=== PATIENT | female | born 1975 | race Caucasian/White ===

== ENCOUNTER 2016-12-19 19:00 | Emergency (ER) | payer OTHER ==
[~2016-12-19] VITALS: Ht 154.9 cm; Wt 64.0 kg
[2016-12-19 19:18] VITALS: Ht 154.9 cm; Wt 64.0 kg
--- NOTE | 2016-12-19 21:24 | ERD ---
ER Documentation Chief Complaint Date/Time DATE: 12/19/16 TIME: 21:18 Chief Complaint headache x 1 week gotten worst for the past 3 days HPI 41-year-old female who presented emergency department for generalized headache for about a week. Stated that it got worse for the past 3 days and it is unbearable today. Patient and family member is insisting CT of the brain to rule out stroke. LMP: Stated that it was 3 years ago. A2. Denies head injury, blurred vision, light sensitivity,changes in vision, neck pain, neck stiffness, difficulty swallowing, shoulder pain, chest pain, back pain, abdominal pain, nausea, vomiting, constipation, diarrhea, urinary symptoms , loss of bowel bladder control, , possibility of being , numbness or tingling sensation, difficulty walking, fever, chills. No known drug allergies. No past medical history. No surgical history. Does not take any prescription medications at home. Social: Works as a finance teacher. Denies smoking, use of alcoholic beverages, use of illegal drugs. ROS All systems reviewed and are negative except as per history of present illness. Medications Home Meds Active Scripts Naproxen* (Naprosyn*) 500 Mg Tablet, 500 MG PO BID Y for PAIN AND/OR INFLAMMATION, #30 TAB Prov:PASILABAN,KLAR F 12/19/16 Acetaminophen* (Tylophen*) 500 Mg Capsule, 1 CAP PO Q6H Y for PAIN AND OR ELEVATED TEMP, #20 CAP Prov:PASILABAN,KLAR F 12/19/16 Tramadol HCl (Tramadol HCl) 50 Mg Tablet, 50 MG PO Q4 Y for PAIN, #15 TAB Prov:PASILABAN,KLAR F 12/19/16 Allergies Allergies: Coded Allergies: No Known Allergy (Unverified , 12/19/16) PMhx/Soc Medical and Surgical Hx: pt denies Medical Hx, pt denies Surgical Hx History of Surgery: No Anesthesia Reaction: No Hx Neurological Disorder: No Hx Respiratory Disorders: No Hx Cardiac Disorders: No Hx Psychiatric Problems: No Hx Miscellaneous Medical Probl: No Hx Alcohol Use: No Hx Substance Use: No Hx Tobacco Use: No Smoking Status: Never smoker Physical Exam Vitals Vital Signs Date Time Temp Pulse Resp B/P Pulse Ox O2 Delivery O2 Flow Rate FiO2 12/19/16 19:18 98.1 65 20 133/67 100 Physical Exam Const: [] Head: Atraumatic Eyes: Normal Conjunctiva. No pain in eye movement. Movement of her eyes within normal limits. No visual field loss. ENT: Normal External Ears, Nose and Mouth. Neck: Full range of motion..~ No meningismus. Resp: Clear to auscultation bilaterally Cardio: Regular rate and rhythm, no murmurs Abd: Soft, non tender, non distended. Normal bowel sounds Skin: No petechiae or rashes Back: No midline or flank tenderness Ext: No cyanosis, or edema Neur: Awake and alert. Cranial nerves II through XII are intact. Romberg test is negative. Psych: Normal Mood and Affect Results 24 hrs Current Medications Medications (Trade) Dose Ordered Sig/Aleta Route PRN Reason Start Time Stop Time Status Last Admin Dose Admin Acetaminophen/ Hydrocodone Bitart ([place] (10/325)) 1 tab ONCE ONCE PO 12/19/16 22:30 12/19/16 22:30 DC Morphine Sulfate (morphine) 4 mg ONCE STAT IM 12/19/16 22:27 12/19/16 22:28 DC 12/19/16 22:32 Procedures/MDM 41-year-old female who presented emergency department for generalized headache for about a week. Stated that it got worse for the past 3 days and it is unbearable today. Patient and family member is insisting CT of the brain to rule out stroke. LMP: Stated that it was 3 years ago. A2. Denies head injury, blurred vision, light sensitivity,changes in vision, neck pain, neck stiffness, difficulty swallowing, shoulder pain, chest pain, back pain, abdominal pain, nausea, vomiting, constipation, diarrhea, urinary symptoms , loss of bowel bladder control, , possibility of being , numbness or tingling sensation, difficulty walking, fever, chills. No known drug allergies. No past medical history. No surgical history. Does not take any prescription medications at home. Social: Works as a finance teacher. Denies smoking, use of alcoholic beverages, use of illegal drugs. Physical exam: Unremarkable. Disease process was explained to the patient and family member. They both verbalized understanding and agreed with the diagnostic test, plan of care. CT of the brain: IMPRESSION: No acute findings. EKG: Sinus bradycardia with a ventricular rate of 53 bpm. No evidence of acute myocardial infarction. No evidence of ischemia. Treatment: [place]. Reevaluation: Denies headache. No neurological deficits. Differential diagnosis: Subarachnoid hemorrhage versus stroke versus cluster headache versus tension headache versus migraine versus headache versus sinus headache Final diagnosis: Headache. Prescription: Tramadol. Tylenol. Motrin. Follow-up with primary care physician the next 24-48 hours. Come back to emergency department for any new symptoms or any worsening of symptoms. All questions and concerns are answered. Patient and family member verbalized understanding and agreed with the plan of care. Hemodynamically stable on discharge. Departure Diagnosis: Primary Impression: Headache Condition: Stable Additional Instructions: Follow-up with primary care physician the next 24-48 hours. Come back to emergency department for any new symptoms or any worsening of symptoms. All questions and concerns are answered. Patient and family member verbalized understanding and agreed with the plan of care. ALLY MCCONNELL Dec 19, 2016 21:24
--- NOTE | 2016-12-19 22:14 | RADRPT ---
PROCEDURE: Noncontrast CT Head. CLINICAL INDICATION: Pain. TECHNIQUE: Noncontrast CT of the head was obtained. The administered radiation dose was CTDI vol = 40.2 mGy, DLP = 768 mGy-cm. One or more of the following dose reduction techniques were used: automa frank exposure control, adjustment of the mA and/or kV according to patient size and/or use of iterati ve reconstruction technique. COMPARISON: No pertinent prior examinations were submitted for comparison. FINDINGS: The ventricles and sulci are within normal limits. There is no acute intracranial hemorrhage or ext ra-axial fluid collection. There is no mass effect. No midline shift is identified. There is no loss of sol-white differentiation to suggest acute infarction. The orbits are within normal limits. The paranasal sinuses and mastoid air cells are without fluid. No destructive osseous lesion is identified. IMPRESSION: No acute findings. RPTAT: HIKT .Leighton Ricci MD, MD Date Time Electronically viewed and signed by .Leighton Ricci MD, on 12/19/2016 22:13 .T/
[2016-12-19] MEDS ORDERED: ACET500C5 PO (22:22)
[2016-12-19] MEDS ORDERED: TRAM50TA2 PO (22:22)
[2016-12-19] MEDS ORDERED: NAPR-260 PO (22:22)
[2016-12-19] MEDS ORDERED: morphine 4 MG/ML VIAL IM STA (22:27)
[2016-12-19] MEDS ORDERED: HYDROCODONE/APAP (10/325) TAB PO ONE (22:30)
== END 2016-12-19 22:37 | disposition home or self-care (01) ==
LOC: FTE 19:00
DX: R51 Headache (principal); R07.9 Chest pain, unspecified
CPT/HCPCS: 70450; 96372; J2270; Z7502

== ENCOUNTER 2018-03-13 17:06 | Emergency (ER) | payer OTHER ==
[~2018-03-13] VITALS: Ht 165.1 cm; Wt 68.0 kg
[~2018-03-13 17:06] MED LIST: ACET500C5 PO; NAPR-985 PO; TRAM50TA2 PO
[2018-03-13 17:20] VITALS: BP 135/68; PULSE 75; RESP 16; Ht 165.1 cm; Wt 68.0 kg
--- NOTE | 2018-03-13 19:06 | ERD ---
ER Documentation Chief Complaint Chief Complaint RIGHT PINKY TOE PAIN HPI 42-year-old female presents with pain to the fifth digit of her right foot. States that she hit her foot on a piece of furniture on March 05 and it is still painful. Patient able to ambulate. Patient denies numbness or tingling. Denies past medical history. Denies allergies. Denies medications. Denies surgeries. Denies alcohol, tobacco, drug use. Up to date on vaccines. ROS All systems reviewed and are negative except as per history of present illness. Medications Home Meds Active Scripts Hydrocodone/Acetaminophen ([place] 5-325 Tablet) 1 Each Tablet, 1 TAB PO Q6H PRN for PAIN, #20 TAB 0 Refills Prov:GRETA PRADO 03/13/18 Naproxen* (Naprosyn*) 500 Mg Tablet, 500 MG PO BID PRN for PAIN AND/OR INFLAMMATION, #30 TAB Prov:ALLY MCCONNELL 12/19/16 Acetaminophen* (Tylophen*) 500 Mg Capsule, 1 CAP PO Q6H PRN for PAIN AND OR ELEVATED TEMP, #20 CAP Prov:ALLY MCCONNELL F 12/19/16 Tramadol HCl (Tramadol HCl) 50 Mg Tablet, 50 MG PO Q4 PRN for PAIN, #15 TAB Prov:ALLY MCCONNELL F 12/19/16 Allergies Allergies: Coded Allergies: No Known Allergy (Unverified , 12/19/16) PMhx/Soc Medical and Surgical Hx: pt denies Medical Hx, pt denies Surgical Hx History of Surgery: No Anesthesia Reaction: No Hx Neurological Disorder: No Hx Respiratory Disorders: No Hx Cardiac Disorders: No Hx Psychiatric Problems: No Hx Miscellaneous Medical Probl: No Hx Alcohol Use: No Hx Substance Use: No Hx Tobacco Use: No Smoking Status: Never smoker FmHx Family History: No diabetes, No coronary disease, No other Physical Exam Vitals Vital Signs Date Temp Pulse Resp B/P (MAP) Pulse Ox O2 O2 Flow FiO2 Time Delivery Rate 03/13/18 98.6 75 16 135/68 98 17:20 (90) Physical Exam Const: No acute distress Resp: Clear to auscultation bilaterally Cardio: Regular rate and rhythm, no murmurs Right Foot: Tenderness to palpation over fifth metatarsal and fifth digit of right foot. No edema, ecchymosis, erythema, or bony deformity noted. Distal sensation intact. ROM intact. Neur: Awake and alert Psych: Normal Mood and Affect Results 24 hrs Laboratory Tests Test 03/13/18 19:19 POC Beta HCG, Qualitative NEGATIVE Procedures/MDM DIAGNOSTIC IMAGING REPORT Patient: BELL PASTOR : 1975 Age: 42 Sex: F MR #: [id number] DOS: 03/13/18 0000 Ordering MD: GRETA PRADO Location: [facility] Room/Bed: PROCEDURE: XR Foot. CLINICAL INDICATION: Right foot pain TECHNIQUE: 3 views of the right foot are available for review. COMPARISON: None available FINDINGS: Displaced extraarticular fracture near the head of the fifth proximal phalanx. Alignment is normal. Joint spaces are preserved. Soft tissues are grossly unremarkable. IMPRESSION: 1. Acute minimally-displaced fracture near the head of the fifth proximal phalanx. RPTAT: UU .Kevin Odell MD, MD Date Time Electronically viewed and signed by .Kevin Odell MD, MD on 03/13/2018 20:01 .K/ CC: GRETA PRADO [id number] ER Course: Right foot xray - positive for fracture of 5th toe. Dano tape and ortho shoe applied. Normal sensation and cap refill after application. MDM: 42-year-old female presents with pain to the fifth digit of her right foot. States that she hit her foot on a piece of furniture on March 05 and it is still painful. Patient able to ambulate. Patient denies numbness or tingling. Based on mechanism of injury and physical exam decision was made to x-ray the right foot. X-ray showed fracture of the proximal phalanx of fifth toe. Patient given ortho shoe and dano tape and discharged with Rx for [place]. Low suspicion for open fracture, compartment syndrome, neurovascular compromise. Patient discharged with strict ER precautions. Patient advised to follow up with PMD and ortho. All questions answered at discharge. Departure Diagnosis: Primary Impression: Injury of toe Encounter type: initial encounter Laterality: right Qualified Codes: S99.921A - Unspecified injury of right foot, initial encounter Additional Impression: Fracture of toe of right foot Encounter type: initial encounter Toe: lesser toe Fracture type: closed Phalanx: proximal Fracture alignment: nondisplaced Qualified Codes: S92.514A - Nondisplaced fracture of proximal phalanx of right lesser toe(s), initial encounter for closed fracture Condition: Stable GRETA PRADO Mar 13, 2018 19:06
[2018-03-13] MEDS ORDERED: HYDR-4011 PO (20:30)
== END 2018-03-13 20:59 | disposition home or self-care (01) ==
LOC: FTE 17:06
DX: S92.514A Nondisplaced fracture of proximal phalanx of right lesser toe(s), initial encounter for closed fracture (principal); W22.03XA Walked into furniture, initial encounter; Y92.9 Unspecified place or not applicable
CPT/HCPCS: 73630; 81025; Z7502

== ENCOUNTER 2018-04-19 08:48 | Emergency (ER) | payer OTHER ==
[~2018-04-19] VITALS: Ht 160 cm; Wt 65.6 kg
[~2018-04-19 08:48] MED LIST changes: +HYDR-4011 PO
[2018-04-19 08:51] VITALS: BP 120/60; PULSE 105; RESP 24; Ht 160 cm; Wt 65.6 kg
[2018-04-19] MEDS ORDERED: KETOROLAC 60 MG INJ IM STA (09:10)
[2018-04-19] MEDS ORDERED: ACETAMINOPHEN 500 MG TAB PO STA (09:48)
[2018-04-19] MEDS ORDERED: IBUP800T48 PO (11:10)
[2018-04-19] MEDS ORDERED: ACET500C5 PO (11:10)
--- NOTE | 2018-04-19 13:16 | ERD ---
ER Documentation Chief Complaint Chief Complaint c/o fever and body apin x 3 days HPI 43-year-old female presenting with diffuse body aches pain times 3 days. She had a fever. States her whole body aches and she has had a cough that is dry. Has a mild runny nose. Took DayQuil earlier today. No change in urination or bowel movement. Has a mild sore throat with no vomiting. Denies medical problems. NKDA. Surgical history denies. Social history denies ROS All systems reviewed and are negative except as per history of present illness. Medications Home Meds Active Scripts Acetaminophen* (Tylophen*) 500 Mg Capsule, 2 CAP PO Q8H PRN for PAIN AND OR ELEVATED TEMP, #20 CAP Prov:LOY SEGURA PA-C 04/19/18 Ibuprofen* (Motrin*) 800 Mg Tab, 800 MG PO Q6, #30 TAB Prov:LOY SEGURA PA-C 04/19/18 Hydrocodone/Acetaminophen ([place] 5-325 Tablet) 1 Each Tablet, 1 TAB PO Q6H PRN for PAIN, #20 TAB 0 Refills Prov:GRETA PRADO 03/13/18 Naproxen* (Naprosyn*) 500 Mg Tablet, 500 MG PO BID PRN for PAIN AND/OR INFLAMMATION, #30 TAB Prov:ALLY MCCONNELL F 12/19/16 Acetaminophen* (Tylophen*) 500 Mg Capsule, 1 CAP PO Q6H PRN for PAIN AND OR ELEVATED TEMP, #20 CAP Prov:JAJAILAROB LEONARDAR F 12/19/16 Tramadol HCl (Tramadol HCl) 50 Mg Tablet, 50 MG PO Q4 PRN for PAIN, #15 TAB Prov:PASILABANROBAR F 12/19/16 Allergies Allergies: Coded Allergies: No Known Allergy (Unverified , 12/19/16) PMhx/Soc History of Surgery: No Anesthesia Reaction: No Hx Neurological Disorder: No Hx Respiratory Disorders: No Hx Cardiac Disorders: No Hx Psychiatric Problems: No Hx Miscellaneous Medical Probl: No Hx Alcohol Use: No Hx Substance Use: No Hx Tobacco Use: No FmHx Family History: No diabetes, No coronary disease, No other Physical Exam Vitals Vital Signs Date Temp Pulse Resp B/P (MAP) Pulse Ox O2 O2 Flow FiO2 Time Delivery Rate 04/19/18 100.2 10:47 04/19/18 101.8 09:57 04/19/18 101.8 105 24 120/60 97 08:51 (80) Physical Exam GENERAL: The patient is well-appearing, well-nourished, in no acute distress HEENT: Atraumatic. Conjunctivae are pink. Pupils equal, round, and reactive to light. There is no scleral icterus. Tympanic membranes clear bilaterally. Oropharynx clear. NECK: C-spine is soft and supple. There is no meningismus. There is no cervical lymphadenopathy. CHEST: Clear to auscultation bilaterally. There are no rales, wheezes or rhonchi. HEART: Regular rate and rhythm. No murmurs, clicks, rubs or gallops. Results 24 hrs Laboratory Tests Test 04/19/18 09:32 04/19/18 09:33 Bedside Urine pH (LAB) 7.5 Bedside Urine Protein (LAB) Negative Bedside Urine Glucose (UA) Negative Bedside Urine Ketones (LAB) Negative Bedside Urine Blood Trace-intact Bedside Urine Nitrite (LAB) Negative Bedside Urine Leukocyte Esterase (L 1+ POC Beta HCG, Qualitative NEGATIVE Current Medications Medications Dose Sig/Aleta Start Time Status Last (Trade) Ordered Route PRN Stop Time Admin Dose Reason Admin Ketorolac 60 mg ONCE STAT 04/19/18 DC 04/19/18 Tromethamine IM 09:10 09:45 (Toradol) 04/19/18 09:12 500 mg ONCE STAT 04/19/18 DC 04/19/18 Acetaminophen PO 09:48 09:57 (Tylenol 04/19/18 09:49 Tab) Procedures/MDM ER course: Influenza A positive. Ibuprofen and Tylenol given ED. Urine negative. MDM: 43-year-old female presenting with fever. Patient symptoms are consistent with influenza. I have low suspicion for pneumonia. I have low suspicion for meningitis or sepsis. I have low suspicion for bacterial HENT infection. Patient is discharged stricter precautions and told to follow-up with primary care within 1-2 days for close evaluation. Patient is told if symptoms change or worsen to return immediately to the ER. All questions answered at discharge Departure Diagnosis: Primary Impression: Influenza Additional Impression: Fever Condition: Stable Patient Instructions: Fever Control (Adult), Influenza (Adult) Referrals: [facility] YOU HAVE RECEIVED A MEDICAL SCREENING EXAM AND THE RESULTS INDICATE THAT YOU DO NOT HAVE A CONDITION THAT REQUIRES URGENT TREATMENT IN THE EMERGENCY DEPARTMENT. FURTHER EVALUATION AND TREATMENT OF YOUR CONDITION CAN WAIT UNTIL YOU ARE SEEN IN YOUR DOCTORS OFFICE WITHIN THE NEXT 1-2 DAYS. IT IS YOUR RESPONSIBILITY TO MAKE AN APPOINTMENT FOR FOLOW-UP CARE. IF YOU HAVE A PRIMARY DOCTOR --you should call your primary doctor and schedule an appointment IF YOU DO NOT HAVE A PRIMARY DOCTOR YOU CAN CALL OUR PHYSICIAN REFERRAL HOTLINE AT IF YOU CAN NOT AFFORD TO SEE A PHYSICIAN YOU CAN CHOSE FROM THE FOLLOWING [facility] [address] [facility] [address] [address] [facility] [address] [facility] [address] [address] [facility] [address] [facility] [facility] [address] [address] [facility]. [address] Additional Instructions: FOLLOW UP WITH YOUR PRIMARY CARE PHYSICIAN TOMORROW.Return to this facility if you are not improving as expected. LOY SEGURA PA-C Apr 19, 2018 13:16
== END 2018-04-19 11:17 | disposition home or self-care (01) ==
LOC: FTE 08:48
DX: J10.1 Influenza due to other identified influenza virus with other respiratory manifestations (principal)
CPT/HCPCS: 71045; 81003; 81025; 87400; J1885; Z7610; 96372